=== PATIENT | male | born 1965 | race Caucasian/White ===

== ENCOUNTER 2022-06-02 07:45 | Emergency (ER) | payer OTHER, SELFPAY ==
[2022-06-02 08:03] VITALS: BP 126/75; PULSE 96; RESP 96; TEMP 37.3; BMI 23.1
--- NOTE | 2022-06-02 09:10 | ED.NURSE ---
pt did not want to wait for results. instructed thru waste and batting waste chopper that positive results would be called.
--- NOTE | 2022-06-02 09:15 | ED_ITS ---
HPI - General Adult General Chief complaint: Sore Throat Stated complaint: sore throat Time Seen by Provider: 06/02/22 08:14 History of Present Illness HPI narrative: Pt is a 57 year old gentleman who is hard of hearing. He was triaged by nursing staff using the coremaker supervisor for Pharyngitis. Pt's strep swab was collected. Pt left prior to being seen or results were available as visit was taking too long in his opinion. We did try to convince him to stay and be assessed. Related Data Home Medications Medication Instructions Recorded Confirmed No Known Home Medications 06/02/22 06/02/22 Allergies Allergy/AdvReac Type Severity Reaction Status Date / Time No Known Drug Allergies Allergy Verified 06/02/22 08:10 Exam Const: Vital Signs, click to edit/add: Vital Signs - 24 hr 06/02/22 08:03 Temperature 99.1 F Pulse Rate [Right Pulse Oximeter] 96 Respiratory Rate 96 H Blood Pressure [Ri ght Upper Arm] 126/75 Oxygen Delivery Me thod Room Air Course Vital Signs Vital signs: Initial Vital Signs Temperature 99.1 F 06/02/22 08:03 Temperature Source Temporal Artery Scan 06/02/22 08:03 Pulse Rate 96 06/02/22 08:03 Respiratory Rate 96 H 06/02/22 08:03 Blood Pressure 126/75 06/02/22 08:03 Blood Pressure Mean 92 06/02/22 08:03 Blood Pressure Position Sitting 06/02/22 08:03 Oxygen Delivery Method 06/02/22 08:03 Vital Signs Temperature 99.1 F 06/02/22 08:03 Pulse Rate 96 06/02/22 08:03 Respiratory Rate 96 H 06/02/22 08:03 Blood Pressure 126/75 06/02/22 08:03 Oxygen Delivery Method 06/02/22 08:03 Temperature 99.1 F 06/02/22 08:03 Pulse Rate 96 06/02/22 08:03 Respiratory Rate 96 H 06/02/22 08:03 Blood Pressure 126/75 06/02/22 08:03 Oxygen Delivery Method 06/02/22 08:03 Discharge Plan Discharge Prescriptions: No Action No Known Home Medications Follow Up/Referrals: Provider,Not a Local [Primary Care Provider] -
[2022-06-02 09:18] LABS: Strep A DNA Probe* NOT DETECTED (Not Detectd)
== END 2022-06-02 09:10 | disposition home or self-care (01) ==
PROVIDERS: Emergency Provider Internal Medicine
DX: J02.9 Acute pharyngitis, unspecified (principal); Z53.21 Procedure and treatment not carried out due to patient leaving prior to being seen by health care provider
CPT/HCPCS: 87651; 99199; 99281; 99282